=== PATIENT | female | born 1965 | race Caucasian/White ===

== ENCOUNTER → 2017-11-07 | Outpatient (CLI) | payer OTHER | LOC: M.RAD 13:03 | DX: Z12.31 Encounter for screening mammogram for malignant neoplasm of breast (principal) ==

== ENCOUNTER → 2017-11-09 | Outpatient (CLI) | payer OTHER | LOC: M.ULTRA 10:21 | DX: N63.21 Unspecified lump in the left breast, upper outer quadrant (principal) ==

== ENCOUNTER → 2018-11-01 | Outpatient (CLI) | payer OTHER | LOC: M.RAD 10:30 | DX: N63.21 Unspecified lump in the left breast, upper outer quadrant (principal); N63.10 Unspecified lump in the right breast, unspecified quadrant; R92.2 Inconclusive mammogram ==

== ENCOUNTER → 2018-11-05 | Outpatient (CLI) | payer OTHER ==
--- NOTE | 2018-11-06 15:07 | PATH ---
[address] [address] PATHOLOGY RPT PROCEDURE Name: ONEIDA KELLY Room: [facility] ALEXA Morin#: [id number] Admission: 11/05/18 Date of : 65 Discharge: Report #: [id number] Path Case #: [id number] [facility] Accession Number: [id number] . 01 Material submitted: . breast - LEFT BREAST. Modifiers: left . 01 Clinical history: . 1.43 x 1.11 x 0.94 cm; 1:00, 6.0 cm from nipple . 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 (SEE COMMENT). . (CHANDRIKA:nena; 11/06/2018) QLM/11/06/2018 . 02 Comment: Specimen type: Image-guided core biopsy Tumor site: Left breast, 1:00, 6.0 cm from nipple Tumor quantitation: Approximately 75% of submitted tissues Histologic type: Ductal adenocarcinoma Histologic grade: Low grade (I/III) Tubules, nuclei and mitoses: 1, 2, 1 LVSI: Not identified Microcalcifications: Identified in invasive tumor Markers: Breast tumor profile pending Block: A3 . DCIS is seen within the confines of the infiltrating tumor. Calcification is also seen within the infiltrating tumor mass. Breast tumor profile studies are pending on A3 and will be the subject of an addendum report. . Reviewed with Dr. Jennifer Velez, who agrees with the diagnosis. . Anastacia Flores ([facility] Breast Navigator), notified at approximately 1230 on 11/06/2018. . (CHANDRIKA:mml; 11/06/2018) . 02 Electronically signed: . Feliciano Ashford MD, Pathologist NPI- [id number] . 01 Gross description: . Received in formalin labeled "Oneida Kelly, left breast 1:00 6 [place] [address] PATHOLOGY RPT PROCEDURE Name: ONEIDA KELLY Room: [facility] Mikel#: [id number] Admission: 11/05/18 Date of : 65 Discharge: Report #: [id number] Path Case #: [id number] FN," are multiple needle cores of yellow-lee fibrofatty tissue measuring 2.4 x 2.1 x 0.6 cm in aggregate dimensions. The tissue is submitted in its entirety in cassettes A1 through A3. The cold ischemic time is 4 minutes. The total formalin fixation time is 11 hours and 32 minutes. (TSD; 11/05/2018) TOB/TOB . 02 Pathologist provided ICD-10: C50.912, D05.12 . 02 CPT . 399830 Specimen Comment: A courtesy copy of this report has been sent to Specimen Comment: [phone], , . Specimen Comment: Report sent to ,DR MILLER / DR ESCUDERO Performed at: [address], [place] [id number] MD Shan Johnson MD Phone: [phone] Performed at: 02 [facility] [address], [place], [place] [id number] MD Feliciano Ashford MD Phone: [phone]
== END | disposition home or self-care (01) ==
LOC: M.ULTRA 08:30
DX: C50.412 Malignant neoplasm of upper-outer quadrant of left female breast (principal)